=== PATIENT | female | born 1975 | race Two or more races ===

== ENCOUNTER 2018-04-30 04:49 | Emergency (ER) | payer SELFPAY ==
[~2018-04-30] VITALS: Ht 172.7 cm; Wt 72.6 kg
[2018-04-30 04:58] VITALS: BP 147/82
== END 2018-04-30 06:50 | disposition left against medical advice (07) ==
LOC: EDBD 04:49 → ER 04:58
DX: F10.920 Alcohol use, unspecified with intoxication, uncomplicated (principal); Y90.0 Blood alcohol level of less than 20 mg/100 ml; Z53.21 Procedure and treatment not carried out due to patient leaving prior to being seen by health care provider